=== PATIENT | male | born 1985 | race Caucasian/White ===

== ENCOUNTER 2018-09-13 13:08 | Emergency (ER) | payer MEDICAID, OTHER ==
[2018-09-13] MEDS ORDERED: Diphtheria,Pertussis(Acell),Tetanus Vaccine 0.5 ML SDV inactive ONE (13:20)
[2018-09-13] MEDS ORDERED: Diphtheria,Pertussis(Acell),Tetanus Vaccine 0.5 ML SDV inactive IM ONE (13:34)
--- NOTE | 2018-09-13 13:34 | EDM.PDOC ---
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 Skin: Reports: Other (foreign body left 5th digit) ED EXAM, SKIN/RASH Exam: See Below Exam Limited By: No Limitations General Appearance: Alert, WD/WN, No Apparent Distress Eye Exam: Bilateral Eye: Normal Inspection Ears: Normal External Exam Nose: Normal Inspection Throat/Mouth: Normal Inspection, Normal Oropharynx Head: Atraumatic, Normocephalic Neck: Normal Inspection, Full Range of Motion Respiratory/Chest: No Respiratory Distress Extremities: Normal Inspection, Normal Range of Motion, Non-Tender, Normal Capillary Refill Skin: Warm, Dry, Normal Color, Other (fish hook left 5th digit) ED SKIN PROCEDURES - Foreign Body Removal Indication:: fish hook left 5th digit Consent Obtained:: Patient Performing Doctor:: iSlvana Landon Anesthesia Type: Regional (1% lidocaine infiltration) Complications:: No Comments:: Area anesthetized with excellent results; hook removed with straight brittany. Area scrubbed with betadine and irrigated with NS. Course - Re-Assessments/Exams Free Text/Narrative Re-Assessment/Exam: This patient presents for evaluation of a foreign body in the left 5th digit. This was successfully removed, see above procedure note. No signs of complications of the foreign body including abscess, cellulitis, necrotizing fascitis, penetration of vascular or nerve structures, etc. Patient is more comfortable after removal. Will have them follow up with primary care for wound check. Risk of infection discussed. 09/13/18 13:37 Departure - Departure Time of Disposition: 13:30 Disposition: Home, Self-Care 01 Condition: Good Clinical Impression: Foreign body (FB) in soft tissue - Discharge Information *PRESCRIPTION DRUG MONITORING PROGRAM REVIEWED*: Not Applicable *COPY OF PRESCRIPTION DRUG MONITORING REPORT IN PATIENT LATASHA: Not Applicable
== END 2018-09-13 13:30 | disposition home or self-care (01) ==
LOC: LB.ED 13:08
DX: S60.457A Superficial foreign body of left little finger, initial encounter (principal); W45.8XXA Other foreign body or object entering through skin, initial encounter; Z23 Encounter for immunization
CPT/HCPCS: 90471; 90715; 99283-25